=== PATIENT | male | born 1970 | race Caucasian/White ===

== ENCOUNTER 2016-09-15 19:02 | Emergency (ER) | payer OTHER ==
[~2016-09-15] VITALS: Ht 193 cm; Wt 217.7 kg
[~2016-09-15 19:02] MED LIST: ABILIFY 10 MG10 MG PO; ABILIFY20 MG PO; ADVIL200 M2 PO; ATIVAN1 MG PO; CEPHALEXIN500 M1 PO; FUROSEMIDE20 MG PO; FUROSEMIDE40 MG PO; HYDROXYZINE PAM25 M2 PO; INDERAL 20 MG PO; K-DUR 20MEQ TA20 MEQ PO; K-TAB20 MEQ PO; KEFLEX500 MG PO; LASIX20 MG PO; LASIX40 MG PO; LORAZEPAM1 MG PO; MELATONIN5 M1 PO; METRONIDAZOLE500 MG PO; POTASSIUM CHLO20 ME1 PO; PROPRANOLOL HCL20 M1 PO; PROPRANOLOL HCL20 MG PO; RISPERDAL0.25 MG PO; RISPERIDONE3 MG PO; VISTARIL50 MG PO
--- NOTE | 2016-09-15 19:46 | ED PSYCHIATRIC COMPLAINT ---
History of Present Illness General Chief Complaint: Psychiatric Related Complaint Stated Complaint: NEEDS TO SPEAK TO CRISIS STRESSED OUT -SI-HI Source: patient Exam Limitations: no limitations Vital Signs & Intake/Output Vital Signs & Intake/Output Vital Signs Date Time Temp Pulse Resp B/P Pulse O2 O2 Flow FiO2 Ox Delivery Rate 09/15 2121 96.1 89 20 148/85 96 Room Air 09/15 1930 98.2 96 20 156/95 96 Room Air ED Intake and Output 09/16 0000 09/15 1200 Intake Total Output Total Balance Patient 480 lb Weight Allergies Coded Allergies: olanzapine (From ZYPREXA) (PER PT INTENSE AMOUNT OF WEIGHT GAIN 05/21/16) risperidone (WEIGHT GAIN, SWELLING ANXIETY 05/21/16) Reconcile Medications Acetaminophen 500 MG TABLET 1 TAB PO BID PRN PAIN (Reported) Aripiprazole (Abilify) 20 MG TABLET 1 TAB PO DAILY MENTAL HEALTH (Reported) Furosemide 40 MG TABLET 1 TAB PO DAILY DIURETIC (Reported) Hydroxyzine Pamoate 25 MG CAPSULE 1 CAP PO TID PRN ANXIETY (Reported) Lorazepam (Ativan) 1 MG TABLET 1 TAB PO BID PRN anxiety four... [id number] Propranolol HCl 20 MG TABLET 1 TAB PO BID BP (Reported) Triage Note: PT TO TRAIGE WITH STATEMENT "I'M NOT THINKING CLEARLY, AND HAVE SEXUALLY DIRTY THOUGHTS" HX OF SCHIZO AFFECTIVE DISORDER. PT DENIES SI/HI, ADMITS DRINKING 1 BEER TODAY, DENIES ILLICIT DRUG USE. Triage Nurses Notes Reviewed? yes Onset: Gradual Duration: week(s):, waxing and waning Timing: recent history Severity: moderate Associated Symptoms: anxiety HPI: 46 yo gentleman h/o schizoaffective disorder presents with increased anxiety. "I'm really stressed out... I live out of my SUV... I'm about to get a job... but I stopped my meds... and now I have intrusive thoughts of a sexual nature." He denies SI/HI/Hallucinations. He notes he has good follow up with care whom he sees regularly. Past History Travel History Traveled to [place] past 21 day No Medical History Any Pertinent Medical History? see below for history Neurological: NONE EENT: NONE Cardiovascular: hypertension Respiratory: NA Gastrointestinal: BLOATING Hepatic: NA Renal: NA Musculoskeletal: SOB AND EXTREME FATIGUE WITH AMBULATION DUE TO WEIGHT Psychiatric: schizo affective disorder Endocrine: NA Blood Disorders: NA Cancer(s): MALIGNANT MELENOMA NECK HAD SURGERY 1994 COMMUNICATION CLERK/Reproductive: PROSTATE ISSUES URINARY RETENTION History of MRSA: No History of VRE: No History of CDIFF: No Surgical History Surgical History: non-contributory Psychosocial History Who do you live with Family Services at Home None What is your primary language Nepali Tobacco Use: Never used Family History Family History, If Any: grandfather, ; Cause: Diabetes. MOTHER FH: hypertension AUNT ( OF BREAST CANCER). Hx Contributory? No Review of Systems Review of Systems Constitutional: Reports: no symptoms. EENTM: Reports: no symptoms. Respiratory: Reports: no symptoms. Cardiovascular: Reports: no symptoms. GI: Reports: no symptoms. Genitourinary: Reports: no symptoms. Musculoskeletal: Reports: no symptoms. Skin: Reports: no symptoms. Neurological/Psychological: Reports: no symptoms. Hematologic/Endocrine: Reports: no symptoms. Immunologic/Allergic: Reports: no symptoms. All Other Systems: Reviewed and Negative Physical Exam Physical Exam General Appearance: well developed/nourished, mild distress Head: atraumatic Eyes: Bilateral: normal appearance, PERRL, EOMI. Ears, Nose, Throat: normal pharynx, normal ENT inspection, hearing grossly normal Neck: normal inspection, supple Respiratory: normal breath sounds Cardiovascular: regular rate/rhythm Gastrointestinal: soft, non-tender Extremities: normal range of motion Neurological/Psychiatric: no motor/sensory deficits, awake, alert, oriented x 3 Appearance/Memory/Insight: appropriate appearance, appropriate insight Behavoir/Eye Contact/Speech: cooperative Thoughts/Hallucinations: no apparent hallucination Skin: intact, normal color, warm/dry SAD PERSONS Done? patient not suicidal Progress Differential Diagnosis: schizoaffective vs bipolar vs other. Plan of Care: Orders Procedure Date/time Status URINE DRUG SCREEN FOR ER ONLY 09/15 1924 Complete ETHANOL 09/15 1924 Complete COMPREHENSIVE METABOLIC PANEL 09/15 1924 Complete CBC WITHOUT DIFFERENTIAL 09/15 1924 Complete ED CRISIS PSYCH CONSULT 09/15 1924 Active Laboratory Tests 09/15/16 2000: Anion Gap 14, Estimated GFR > 60, BUN/Creatinine Ratio 14.5, Glucose 112 H, Calcium 9.3, Total Bilirubin 1.2, AST 79 H, ALT 135 H, Alkaline Phosphatase 88 , Total Protein 7.0, Albumin 4.0, Globulin 3.0, Albumin/Globulin Ratio 1.3, CBC w Diff NO MAN DIFF REQ, RBC 4.98, MCV 87.2, MCH 29.0, RDW 14.5, MPV 8.3, Gran % 69.4, Lymphocytes % 22.7, Monocytes % 6.4, Eosinophils % 1.2, Basophils % 0.3, Absolute Granulocytes 6.3, Absolute Lymphocytes 2.1, Absolute Monocytes 0.6, Absolute Eosinophils 0.1, Absolute Basophils 0, PUBS MCHC 33.2, Serum Alcohol < 10.0 09/15/161948: Urine Opiates Screen < 100.00, Methadone Screen < 40, Barbiturate Screen < 60, Ur Phencyclidine Scrn < 6.00, Amphetamines Screen < 100, U Benzodiazepines Scrn < 85, Urine Cocaine Screen < 50, Urine Cannabis Screen < 5.00 Departure Departure Disposition: HOME OR SELF CARE Condition: Stable Clinical Impression Primary Impression: Schizoaffective disorder Referrals: FEMI ROTH,PEREZ Maldonado (PCP/Family) Departure Forms: Customer Survey General Discharge Information Prescriptions: Current Visit Scripts Lorazepam (Ativan) 1 TAB PO BID PRN anxiety #4 TAB four... [id number] Comments 09/15/16, 9:14pm... discussed with crises. pt cleared... he will resume his abilify and follow up with care this week. small amt of ativan given for acute anxiety flare. Denies SI/HI/Hallucinations.
[2016-09-15] MEDS ORDERED: ABILIFY20 M1 PO (19:58)
[2016-09-15] MEDS ORDERED: FUROSEMIDE40 M1 PO (19:59)
[2016-09-15] MEDS ORDERED: ACETAMINOPHEN500 M4 PO (20:00)
[2016-09-15 20:07] LABS: ABSOLUTE BASOPHIL COUNT 0 /CUMM (0.0-0.2); ABSOLUTE EOSINOPHIL COUNT 0.1 /CUMM (0.0-0.7); ABSOLUTE GRANULOCYTE CT 6.3 /CUMM (1.4-6.5); ABSOLUTE LYMPH COUNT 2.1 /CUMM (1.2-3.4); ABSOLUTE MONOCYTE COUNT 0.6 /CUMM (0.10-0.60); BASOPHIL % 0.3 % (0.0-2.0); EOSINOPHIL % 1.2 % (0-5); GRANULOCYTE % 69.4 % (42.2-75.2); HEMATOCRIT 43.4 % (42-52); MEAN CORPUSCULAR HGB CONC 33.2 G/DL (33.0-37.0); MEAN CORPUSCULAR VOLUME 87.2 FL (80.0-94.0); MEAN PLATELET VOLUME 8.3 FL (7.4-10.4); PLATELET COUNT 189 /CUMM (130-400); RBC DISTRIBUTION WIDTH 14.5 % (11.5-14.5); RED BLOOD CELL CT 4.98 /CUMM (4.70-6.10); WHITE BLOOD CELL COUNT 9.1 /CUMM (4.8-10.8)
[2016-09-15] MEDS ORDERED: ATIVAN1 M1 PO (21:13)
[2016-09-15 21:22] VITALS: BP 148/85
--- NOTE | 2016-09-15 22:05 | ED PSYCH CRISIS CONSULTATION ---
Crisis Consult Basic Assessment Date of Consult: 09/15/16 Responsible Person/Accompanied By: self-presented Insurance Authorization: Insurance #1: Insurance name: [facility] Phone number: Policy number: [id number] Group number: [id number] Authorization number: n/a ED Provider: Patient's ED Provider: VICENTA MIRELES MD Primary Care Physician: Patient's PCP: PEREZ KAHN MD PCP's Chief Complaint: Psychiatric Related Complaint Patient's Quote: "I'm having deviant thoughts" Present Illness: Pt is a 46 year old male who brought himself to the ED due to experiencing "deviant" sexual thoughts for the past two days. Pt says that he finds them very disturbing and does not want to act on them. Pt reports that he has a hx of Schizoaffective D/O and is in treatment at [facility] in [place]. He reports that he is prescribed Abilify 20mg, however says that he has not been taking it regularly for the past few weeks, believing that it was an anti-depressant that he did not need. Pt. reports that he is currently homeless and living in his car and that it has been very stressful getting ready and going to work every day. Pt. reports that he first started feeling very stressed and was having a lot of "tension" in his head about two weeks ago. He says that at that time he went to a clinic in [place] and was prescribed Xanax which he reports "helped to clear my head". He says that he was hoping that he could be prescribed something today that would serve as a "mental relaxant". Pt. denies any SI, HI, AH or VH. He denies any substance use, except for an occasional beer. He says that he had had one beer today, but that this had been the first alcohol use in months. Patient's Address: [place] [address] Other Phone Number: Who Do You Live With? Other (see notes) (homeless - lives inn car) Family/Informants Interviewed: n/a Allergies - Coded Allergies: olanzapine (From ZYPREXA) (PER PT INTENSE AMOUNT OF WEIGHT GAIN 05/21/16) risperidone (WEIGHT GAIN, SWELLING ANXIETY 05/21/16) Current Medications - Scheduled Medications Aripiprazole (Abilify) 20 MG TABLET 1 TAB PO DAILY MENTAL HEALTH #30 ( Reported) Entered as Reported by VERNON GUSTAFSON on 09/15/161957 Furosemide 40 MG TABLET 1 TAB PO DAILY DIURETIC #30 (Reported) Entered as Reported by VERNON GUSTAFSON on 09/15/161958 Propranolol HCl 20 MG TABLET 1 TAB PO BID BP (Reported) Entered as Reported by GEORGE ROTH [facility] on 10/03/14 165 Scheduled PRN Medications Acetaminophen 500 MG TABLET 1 TAB PO BID PRN PAIN (Reported) Entered as Reported by VERNON GUSTAFSON on 09/15/161999 Hydroxyzine Pamoate 25 MG CAPSULE 1 CAP PO TID PRN ANXIETY #90 (Reported) Entered as Reported by VERNON GUSTAFSON on 05/21/162018 Lorazepam (Ativan) 1 MG TABLET 1 TAB PO BID PRN anxiety #4 TAB Prescribed by ALINE ROTH,[facility] on 09/15/16 Laboratory Results: Laboratory Tests 09/15/161999: Anion Gap 14, Estimated GFR > 60, BUN/Creatinine Ratio 14.5, Glucose 112 H, Calcium 9.3, Total Bilirubin 1.2, AST 79 H, ALT 135 H, Alkaline Phosphatase 88 , Total Protein 7.0, Albumin 4.0, Globulin 3.0, Albumin/Globulin Ratio 1.3, CBC w Diff NO MAN DIFF REQ, RBC 4.98, MCV 87.2, MCH 29.0, RDW 14.5, MPV 8.3, Gran % 69.4, Lymphocytes % 22.7, Monocytes % 6.4, Eosinophils % 1.2, Basophils % 0.3, Absolute Granulocytes 6.3, Absolute Lymphocytes 2.1, Absolute Monocytes 0.6, Absolute Eosinophils 0.1, Absolute Basophils 0, PUBS MCHC 33.2, Serum Alcohol < 10.0 09/15/161948: Urine Opiates Screen < 100.00, Methadone Screen < 40, Barbiturate Screen < 60, Ur Phencyclidine Scrn < 6.00, Amphetamines Screen < 100, U Benzodiazepines Scrn < 85, Urine Cocaine Screen < 50, Urine Cannabis Screen < 5.00 Past History Past Medical History Neurological: NONE EENT: NONE Cardiovascular: hypertension Respiratory: NA Gastrointestinal: BLOATING Hepatic: NA Renal: NA Musculoskeletal: SOB AND EXTREME FATIGUE WITH AMBULATION DUE TO WEIGHT Psychiatric: schizo affective disorder Endocrine: NA Blood Disorders: NA Cancer(s): MALIGNANT MELENOMA NECK HAD SURGERY 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 OP - [facility] in [place]. Reason for Treatment Schizoaffective D/O Dates of Treatment [facility] and [place] - 2013; Has been in tx at [facility] for a few years. Response to Treatment unk Diagnosis by History: Schizoaffective disorder Substance Use/Abuse History Drug Use/Abuse Substances Used/Abused Yes Substance Used/Abused Alcohol First Use unk Last Used today How much used/taken 1 beer How often on occasion For how long unk Route of use oral Substance Abuse Treatment Substance Abuse Treatment Past Substance Abuse [place] No Comments: n/a Current Mental Status Mental Status Orientation: Person, Place, Situation Affect: Anxious Speech: WNL Neuro-vegetative: Concentration Poor Appearance Appearance- Dress/Hygiene: WNL Behaviors Thought Process: WNL Thought Content: WNL Memory: WNL Insight: Fair SI/HI Risk Assessment Past Suicidal Ideation/Attempts No Current Suicidal Ideation/Att No Past Homicidal Ideation/Att: No Current Homicidal Ideation/Attempts No Degree of Intent: None Danger To: none Gravely Disabled: none Risk Factors: chronic/serious med cond., high anxiety/distress, SA/MH hospitalized, male, homeless Lethality Ratin (mild) PTSD Checklist PTSD Done? patient declined ED Management Sitter: Yes Restraints: No DSM5/PS Stressors/Medical Prob Diagnosis' (DSM 5, Stressors, Medical): F25.0 - Schizoaffective D/O, bipolar type. Stressors - homeless, financial. Medical - Lymphodema, HTN, skin cancer Current GAF: 50 Comments: working, in tx, not suicidal, having perseverative thoughts Departure Disposition Psych Medical Clearance Date: 09/15/16 Medically Cleared at: 2039 Time Started: 2039 Time Ended: 2109 Psychiatrist Consulted: Monika MD, Marilise Date Disposition Established: 09/15/16 Time Disposition Established: 2109 Plan for Disposition - Modality: Outpatient Facility: [facility] Follow-up Appt Date: 09/16/16 Contact: Pt to call Telephone: n/a Rationale for Disposition: Pt is not at current risk of harm to self or others and is not psychotic, but is having perseverative thoughts and anxiety. Pt is in current tx at [facility]. Pt. is not at current risk of harm to self or others and is not gravely disabled. Additional Instructions: none Referrals FEMI ROTH,PEREZ Maldonado (PCP/Family)
== END 2016-09-15 21:23 ==
LOC: ERH 19:02
PROVIDERS: Pediatrics
DX: F25.9 Schizoaffective disorder, unspecified (principal)
CPT/HCPCS: 80307; G0463; G0480